=== PATIENT | female | born 1965 | race Caucasian/White ===

== ENCOUNTER → 2016-10-09 | Outpatient (CLI) | payer BC ==
--- NOTE | 2016-10-09 14:01 | US ---
Right Breast Ultrasound Indication: Palpable lump inner right breast Technique: The inner right breast was scanned with a high-resolution linear transducer by the sonogra pher and mo. Correlation made with mammograms and targeted physical exam. Comparison: Diagnostic right mammograms performed on the same day Findings: Palpable lump corresponds to a 2 x 4 mm echogenic focus limited to the skin at the 3:30 pos ition 6 cm from the nipple. The underlying breast parenchyma is normal. No cyst, mass, or architectur al distortion. Impression: 1. Normal breast parenchyma. No evidence of breast malignancy. 2. Small dermal lesion, corresponding to the palpable lump, potentially may represent ingrown hair. If the palpable lump persists, consider dermatological consultation. BI-RADS 2: Benign Finding. Recommendation: Clinical follow-up and dermatology consultation if necessary. Bilateral screening ma mmograms due in February 2017. The negative results and recommendations were discussed with the patient at time of study completion.
--- NOTE | 2016-10-12 10:16 | MA ---
Right Diagnostic Mammogram Indication: Small palpable lump inner right breast associated with skin. Technique: CC, MLO and true lateral views right breast as well as spot compressed CC and MLO views of the inner right breast. A marker was placed over the palpable lump. Mammograms processed with [employer]. Comparison: Screening mammograms dated February 2016, February 2015, February 2014, and January 2011 Breast density: Type B. Findings: No malignant-type calcifications, mass, or architectural distortion. Specifically, no abnor mality has developed in the inner right breast to correspond with the palpable lump. Impression: Negative unchanged mammograms. BI-RADS 0: Needs additional imaging evaluation. Recommendation: Proceed with right breast ultrasound to optimally characterize palpable lump.
== END ==
LOC: BMCIMAGING 12:23
PROVIDERS: ATTEND Internal Medicine
DX: N63 Unspecified lump in breast (principal)
CPT/HCPCS: G0206

== ENCOUNTER → 2017-12-07 | Outpatient (CLI) | payer OTHER | LOC: FIMAGING 08:53 | PROVIDERS: ATTEND Internal Medicine | DX: Z12.31 Encounter for screening mammogram for malignant neoplasm of breast (principal); Z13.820 Encounter for screening for osteoporosis; Z78.0 Asymptomatic menopausal state ==

== ENCOUNTER → 2018-12-19 | Outpatient (CLI) | payer OTHER | LOC: FIMAGING 08:47 | PROVIDERS: ATTEND Internal Medicine | DX: Z12.31 Encounter for screening mammogram for malignant neoplasm of breast (principal); Z80.3 Family history of malignant neoplasm of breast ==

== ENCOUNTER → 2019-01-03 | Outpatient (CLI) | payer OTHER | LOC: FIMAGING 10:25 | PROVIDERS: ATTEND Internal Medicine | DX: R92.8 Other abnormal and inconclusive findings on diagnostic imaging of breast (principal) ==